=== PATIENT | male | born 1960 | race Caucasian/White ===

== ENCOUNTER 2024-03-16 16:28 | Emergency (ER) | payer MEDICARE, SELFPAY ==
[2024-03-16 16:34] VITALS: BP 156/88
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
[2024-03-16 16:54] LABS: % Eosinophils 8.1 % (0-6); % Immature Granulocytes 0.3 % (0-0.5); % Lymphocytes 14.4 % (20.5-51.1); % Monocytes 10.7 % (1.7-9.3); % Neutrophils 65.5 % (42.2-75.2); Absolute Basophils 0.1 10^3/uL (0-0.2); Absolute Eosinophils 0.5 10^3/uL (0-0.7); Absolute Lymphocytes 0.9 10^3/uL (1.2-3.4); Absolute Monocytes 0.6 10^3/uL (0.1-0.6); Absolute Neutrophils 3.9 10^3/uL (1.4-6.5); Hematocrit 37.2 % (39.0-52.0); Mean Corp Hgb Conc. 34.9 g/dL (33.0-37.0); Mean Corpuscular Hgb 32.8 pg (27.0-31.0); Mean Corpuscular Volume 93.9 fL (80.0-94.0); Mean Platelet Volume 9.7 fL (7.4-10.4); Nucleated Red Blood Cells % 0 % (-); Platelet Count 207 10^3/uL (130-400); Red Blood Cell Count 3.96 10^6/uL (4.70-6.10); Red Cell Dist. Width 12.6 % (11.5-14.5); White Blood Cell Count 5.9 10^3/uL (4.8-10.8)
[2024-03-16 17:16] LABS: ALT (SGPT) 25 U/L (0-50); AST (SGOT) 36 U/L (17-59); Albumin 4.6 g/dl (3.5-5.0); Alkaline Phosphatase 76 U/L (38-126); Blood Urea Nitrogen 22 mg/dl (9-20); Calcium 10.3 mg/dl (8.4-10.2); Carbon Dioxide 23 mmol/L (22-30); Chloride 107 mmol/L (98-107); Glucose 96 mg/dl (70-99); Potassium 4.7 mmol/L (3.5-5.1); Sodium 143 mmol/L (135-145); Total Bilirubin 0.5 mg/dl (0.2-1.3); Total Protein 7.2 g/dl (6.3-8.2); eGFR > 60.00
[2024-03-16 17:24] LABS: Troponin I < 0.012 ng/ml
[2024-03-16 20:54] VITALS: BP 145/84
[2024-03-16] MEDS: DUONEB 3 ML INH (21:38)
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
== END 2024-03-16 22:13 | disposition home or self-care (01) ==
LOC: EMR 16:28
PROVIDERS: Physician Assistant; EMERGENCY PHYSICIAN Emergency Medicine
DX: R06.02 Shortness of breath (principal); K21.9 Gastro-esophageal reflux disease without esophagitis; I25.10 Atherosclerotic heart disease of native coronary artery without angina pectoris; E86.0 Dehydration; R07.89 Other chest pain; Z87.891 Personal history of nicotine dependence
CPT/HCPCS: 99283; 94640; 71046; 80053; 83880; 84484; 85025; 93005